=== PATIENT | female | born 1985 | race Caucasian/White ===

== ENCOUNTER 2020-06-29 11:21 | Outpatient (REF) | payer OTHER, SELFPAY | END 2020-06-29 11:22 | disposition home or self-care (01) | LOC: HO.LAB 11:21 | PROVIDERS: Visit Provider Internal Medicine | DX: Z20.828 Contact with and (suspected) exposure to other viral communicable diseases (principal) | CPT/HCPCS: C9803; U0003 ==

== ENCOUNTER 2020-08-21 18:14 | Emergency (ER) | payer OTHER, SELFPAY ==
--- NOTE | 2020-08-21 18:25 | ECG_ITS ---
Test Reason : SI Blood Pressure : / mmHG Vent. Rate : 095 BPM Atrial Rate : 095 BPM P-R Int : 140 ms QRS Dur : 088 ms QT Int : 360 ms P-R-T Axes : 055 086 035 degrees QTc Int : 452 ms Normal sinus rhythm Normal ECG No previous ECGs available Referred By: Demetrius Dumont Electronically Signed By:Clifford Cortez
[2020-08-21 18:54] VITALS: BP 148/103; BP 156/76; PULSE 99; RESP 21; TEMP 36.6; O2SAT 100; O2SAT 98; BMI 22.8
[2020-08-21 19:03] VITALS: BP 148/103; PULSE 99; RESP 21; TEMP 36.6; O2SAT 100
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
[2020-08-21] MEDS: Activated charcoaL 50 GM/240 ML ORAL.SUSP PO (19:24)
[2020-08-21 20:07] LABS: Basophils Percent Auto 0.5 % (0-2); Eosinophils Percent Auto 0.8 % (0-4); Hematocrit 33.8 % (37-47); Hemoglobin 11.2 g/dl (12.0-16.0); Lymphocytes Absolute Auto 1.2 X10*3/uL (1.2-4.9); Lymphocytes Percent Auto 30.2 % (20-40); MANUAL DIFF FLAG NO; Mean Corpuscular HGB Conc 33.1 g/dl (31.0-35.0); Mean Corpuscular Hemoglobin 32.6 pg (27.0-33.0); Mean Corpuscular Volume 98.3 fL (80-98); Mean Platelet Volume 9.4 fL (9.4-12.3); Monocytes Absolute Auto 0.4 X10*3/uL (0.1-1.2); Monocytes Percent Auto 10.3 % (2-11); Neutrophils Absolute Auto 2.3 X10*3/uL (2.0-8.3); Neutrophils Percent Auto 58.2 % (45-73); Platelet Count 238 X10*3/uL (160-400); Red Blood Count 3.44 X10*6/uL (4.20-5.50); Red Cell Distribution Width 12.7 % (11.0-16.0); White Blood Count 3.9 X10*3/uL (4.8-10.8)
[2020-08-21 20:32] VITALS: BP 95/67; PULSE 98; RESP 18; TEMP 36.4; O2SAT 97
[2020-08-21 20:36] LABS: Ethanol < 10 mg/dL
[2020-08-21 20:38] LABS: Acetaminophen LAB < 1 mcg/mL (<30); Alanine Aminotransferase 57 U/L (0-31); Albumin Level 4.4 g/dL (3.5-5.0); Alkaline Phosphatase 45 U/L (39-117); Anion Gap 13 (12-20); Aspartate Amino Transferase 55 U/L (5-31); Bilirubin Direct 0.2 mg/dL (0.0-0.5); Bilirubin Total 0.5 mg/dL (0.0-1.0); Blood Urea Nitrogen 12 mg/dL (9-16); Carbon Dioxide 27 mmol/L (22-29); Chloride 104 mmol/L (96-108); Creatinine Clr Calc Pharmacy 74.8; Estimated Glomerular Filt Rate > 60; Glucose Random 92 mg/dL (60-115); Potassium 3.8 mmol/L (3.3-5.1); Salicylate < 5.0 mg/dL (15-30); Sodium 140 mmol/L (135-145); Total Protein 7.2 g/dL (6.5-8.0)
[2020-08-21 20:55] LABS: COVID-19 Test Negative (Negative)
--- NOTE | 2020-08-21 22:18 | PC.NURSE ---
POISON CONTROL NOTIFIED
[2020-08-21 22:24] VITALS: BP 115/72; PULSE 97; RESP 18; TEMP 36.4; O2SAT 96
[2020-08-21 22:50] LABS: Glucose Urine UA NEG (NEG); Leukocyte Esterase Urine NEG (NEG); Nitrite Urine NEG (NEG); Specific Gravity - Urine <= 1.005 (1.005-1.025); Urine Blood NEG (NEG); Urine Ketones NEG (NEG); Urine Protein NEG (NEG-TRACE)
[2020-08-21 22:55] LABS: Appearance Urine HAZY; Color Urine YELLOW
[2020-08-21 23:15] LABS: Amphetamine Screen Urine Not Detected (Not Detect); Barbiturates, Urine Not Detected (Not Detect); Benzodiazepines Screen Urine Not Detected (Not Detect); Cannabinoid Screen Urine POSITIVE (Not Detect); Cocaine Screen Urine Not Detected (Not Detect); Opiate Screen Urine Not Detected (Not Detect); Phencyclidine Screen Urine Not Detected (Not Detect)
[2020-08-22 00:20] LABS: UPreg QC Valid YES; Urine Pregnancy NEGATIVE (NEGATIVE)
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
[2020-08-22 06:11] VITALS: BP 105/66; PULSE 105; RESP 16; TEMP 37.4; O2SAT 97
[2020-08-22 06:26] LABS: COVID-19 Test Negative (Negative); IDNOW Serial# 9DD0AD1C
--- NOTE | 2020-08-22 07:40 | PC.NURSE ---
Report received from JAKE Lorenzana. Pt resting, resp unlabored.
[2020-08-22 08:00] VITALS: RESP 20
--- NOTE | 2020-08-22 09:07 | PC.NURSE ---
CARE team in to see pt.
[2020-08-22 09:38] VITALS: BP 106/75; PULSE 97; TEMP 36.4; O2SAT 100
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
--- NOTE | 2020-08-22 10:26 | PC.NURSE ---
Pt seen by CARE team, rodrigue byrne rec w/ pt, pt reports she has been compliant w/ medications. Pt denies any symptoms other than headache at this time..
[2020-08-22] MEDS: Acetaminophen 325 MG TABLET 650 MG PO (10:51)
--- NOTE | 2020-08-22 11:00 | MHC.CARE ---
Pt provided alt number for JUVENCIO Heath and stated she wanted to speak with him or Waqas about their thoughts for admission prior to her willingness to seek help. T/w spoke briefly with Waqas who stated he doesn't have a history on her he has only known her 2 months and he is just glad that she is getting the help she needs . Pt then made a call to Waqas on the pod phone. Pt stated to t/w she still is not willing to seek an admission and would prefer not to . T/w is recommending pt seek admission for assessment and stabilization due to her impairment, impulsively and lack of insight. Pt stated her medications are clearly not working yet will not agree to a supervised setting in which to do that. T/w provided recommendations to ED providers that pt would benefit from admission for stabilization and medication review by Psychiatry however pt is not willing at this time. Pt is on a section 12a from police at this time. Pt denies suicidal thinking, homicidal thinking and admitted to taking the impulsive actions last night in order to avoid detention. Pts ED provider met w pt and spoke w pts JUVENCIO Heath who told ED provider he was willing to have pt return home and pick her up as well as help pt seek OP tx. CARE team agreed to give [facility] info as well as list and pt can inform OP provider of her choice to speak w CARE team regarding strong recommendations to seek tx. Pt agreed if she were in acute crisis s/p dc she would return to [facility] and seek admission.
--- NOTE | 2020-08-22 11:12 | PC.NURSE ---
Brendon Chau and CARE team in w/ pt.
--- NOTE | 2020-08-22 11:22 | PC.NURSE ---
Pt evaluated by provider w/ caree team present. Pt to be discharged, pt has significant other who is willing to pick pt up. Pt will stay w/ significant other. Pt in agreement w/ plan, denies SI.
== END 2020-08-22 11:42 | disposition home or self-care (01) ==
PROVIDERS: Student in an Organized Health Care Education/Training Program; Emergency Provider Internal Medicine
DX: T43.212A Poisoning by selective serotonin and norepinephrine reuptake inhibitors, intentional self-harm, initial encounter (principal); Y92.019 Unspecified place in single-family (private) house as the place of occurrence of the external cause; F31.9 Bipolar disorder, unspecified; Z20.822 Contact with and (suspected) exposure to COVID-19
CPT/HCPCS: 36415; 80048; 80076; 80307; 80320; 81003; 81025; 85025; 87635; 93005; 99285; G0480

== ENCOUNTER 2020-09-11 10:53 | Emergency (ER) | payer OTHER, SELFPAY ==
--- NOTE | ~2020-09-11 | CT_ITS ---
EXAMINATION: CT ABDOMEN AND PELVIS WITH CONTRAST CLINICAL INFORMATION: Right lower quadrant pain COMPARISON: None TECHNIQUE: Multidetector volumetric images were obtained from the superior aspect of the liver through the pubic symphysis following administration 85 mL of Omnipaque 350 intravenous contrast. Sagittal and coronal reformatted images were obtained on the technologist's workstation. Oral contrast: No This CT examination was performed using dose optimization techniques as appropriate, variously including the following: *Automated exposure control *Adjustment of mA and/or kV according to patient size (this includes techniques or standardized protocols for targeted exams where dose is matched to indication/reason for exam; i.e. extremities or head) *Use of iterative reconstruction technique DLP: 416 mGy-cm FINDINGS: LUNG BASES: The visualized lung bases are unremarkable. LIVER, GALLBLADDER, AND BILIARY TREE: The liver is normal in size, shape, and attenuation. No focal hepatic lesion or biliary ductal dilatation is present. The gallbladder is unremarkable with no evidence of radiopaque gallstones, gallbladder wall thickening, or obvious pericholecystic inflammatory changes. PANCREAS: Unremarkable. SPLEEN: Unremarkable. ADRENAL GLANDS: Unremarkable. KIDNEYS AND URETERS: The kidneys are normal in size, shape, and attenuation. No hydronephrosis, hydroureter, or calculi seen. No perinephric stranding. BLADDER: Unremarkable. GASTROINTESTINAL TRACT: The small and large bowel are unremarkable. The appendix is unremarkable. ABDOMINAL WALL: No significant hernia is appreciated. LYMPH NODES: Normal. 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 PELVIC VISCERA: IUD present within the uterus. No adnexal abnormalities. Trace pelvic free fluid is normal in a female of reproductive age. OSSEOUS STRUCTURES: Unremarkable. CT/CT abdomen pelvis w con IMPRESSION: No acute findings within the abdomen or pelvis. Normal appendix. Prominent bilateral gonadal veins and pelvic varicosities. This may cause chronic debilitating pain. A consultation with an interventional radiologist to discuss embolization may be useful.
[2020-09-11 10:55] VITALS: BP 120/89; PULSE 98; RESP 18; TEMP 37.4; O2SAT 96; BMI 27.4
[2020-09-11 11:50] LABS: Appearance Urine CLOUDY; Color Urine YELLOW; Glucose Urine UA NEG (NEG); Leukocyte Esterase Urine 1+ (NEG); Nitrite Urine NEG (NEG); UACC Culture Trigger YES; Urine Blood 2+ (NEG); Urine Ketones NEG (NEG); Urine Protein NEG (NEG-TRACE)
[2020-09-11 12:00] LABS: Amorphous Sediment Urine 2+ /LPF; Bacteria Urine 1+ /LPF; Squamous Epithelial Cell Urine 4+ /LPF
[2020-09-11 12:40] LABS: MANUAL DIFF FLAG NO
[2020-09-11 12:41] LABS: Basophils Percent Auto 0.6 % (0-2); Eosinophils Percent Auto 0.8 % (0-4); Hematocrit 36.3 % (37-47); Hemoglobin 11.9 g/dl (12.0-16.0); Imm Gran Abs Auto 0.01 X10*3/uL (0.00-0.03); Imm Gran Pct Auto 0.2 % (0.0-0.4); Lymphocytes Absolute Auto 1.9 X10*3/uL (1.2-4.9); Lymphocytes Percent Auto 35.3 % (20-40); Mean Corpuscular HGB Conc 32.8 g/dl (31.0-35.0); Mean Corpuscular Hemoglobin 32.7 pg (27.0-33.0); Mean Corpuscular Volume 99.7 fL (80-98); Mean Platelet Volume 9.4 fL (9.4-12.3); Monocytes Absolute Auto 0.5 X10*3/uL (0.1-1.2); Neutrophils Absolute Auto 2.8 X10*3/uL (2.0-8.3); Neutrophils Percent Auto 53.1 % (45-73); Platelet Count 277 X10*3/uL (160-400); Red Blood Count 3.64 X10*6/uL (4.20-5.50); Red Cell Distribution Width 13.3 % (11.0-16.0); White Blood Count 5.3 X10*3/uL (4.8-10.8)
[2020-09-11 13:08] LABS: Alanine Aminotransferase 56 U/L (0-31); Albumin Level 4.7 g/dL (3.5-5.0); Alkaline Phosphatase 45 U/L (39-117); Anion Gap 13 (12-20); Aspartate Amino Transferase 48 U/L (5-31); Bilirubin Total 0.6 mg/dL (0.0-1.0); Blood Urea Nitrogen 11 mg/dL (9-16); Calcium 9.3 mg/dL (8.4-10.2); Carbon Dioxide 26 mmol/L (22-29); Chloride 103 mmol/L (96-108); Creatinine Clr Calc Pharmacy 78.9; Estimated Glomerular Filt Rate > 60; Glucose Random 83 mg/dL (60-115); Potassium 4.2 mmol/L (3.3-5.1); Sodium 138 mmol/L (135-145); Total Protein 7.8 g/dL (6.5-8.0)
--- NOTE | 2020-09-11 13:19 | ED_ITS ---
HPI - Abdominal Pain General Chief Complaint: Abdominal Pain Stated Complaint: LOWER ABD PAIN VOMITING Time Seen by Provider: 09/11/20 11:42 Source: patient Mode of arrival: ambulatory Limitations: no limitations History of Present Illness HPI narrative: 35 yo female with RLQ pain x 2 days with n/v and worsening over the past two days, also notes she is due for her period so it could be that, also tried to pull her own IUD out but no bleeding since then MD elicited complaint: abdominal pain Onset (ago): day(s) (2) Pain Consistency: constant Location: RLQ Severity: moderate Quality: cramping Radiation: back Migration to: no migration Exacerbating factors: movement Relieving factors: nothing Associated symptoms: nausea and vomiting Related Data Home Medications Medication Instructions Recorded Confirmed duloxetine 1 cap PO BID 08/22/20 08/22/20 gabapentin 300 mg PO TID 08/22/20 08/22/20 lamotrigine 1 tab PO DAILY 08/22/20 08/22/20 naltrexone 50 mg PO DAILY 08/22/20 08/22/20 pregabalin 2 cap PO DAILY 08/22/20 08/22/20 trazodone 50 mg PO BEDTIME 08/22/20 08/22/20 valacyclovir 1 tab PO DAILY 08/22/20 08/22/20 Previous Rx's Medication Instructions Recorded cyclobenzaprine 10 mg PO TID PRN #14 tab 09/11/20 ondansetron 4 mg PO Q8H PRN #20 tab 09/11/20 Allergies Allergy/AdvReac Type Severity Reaction Status Date / Time Penicillins Allergy Intermediate hives Verified 08/21/20 19:16 Review of Systems Review of Systems Constitutional : No Weight loss, No Fever, No Chills ENT/Mouth : No sore throat, No Rhinorrhea Eyes: No Swelling, No Redness Cardiovascular : No Chest Pain, No SOB, NoEdema Respiratory : No Cough, No Sputum, No Wheezing Gastrointestinal : Positive Nausea, Positive Vomiting, no Diarrhea, positive abdominal Pain, No Hematochezia, No Melena Genitourinary : No Dysuria, No Urinary Frequency, No Hematuria, No Urgency Musculoskeletal : No joint pain, No Myalgias, No Joint Swelling Skin : No Skin Lesions, No rash Neuro : No Weakness, No Numbness, No Dizziness, No Headache Psych : No Anxiety/Panic, No Depression Heme/Lymph: No Bruising, No Lymphadenopathy Endocrine : No Polyuria, No Polydipsia All other systems reviewed and are negative. Physical Exam Vital Signs: Vital Signs: Last Vital Signs Temp 99.4 F 09/11/20 10:55 Pulse 98 09/11/20 10:55 Resp 18 09/11/20 10:55 BP 120/89 09/11/20 10:55 Pulse Ox 96 09/11/20 10:55 Body Mass Index 27.4 Appearance: Alert. Oriented X3. No acute distress. Eyes: Pupils equal, round and reactive to light. ENT: Pharynx normal. Neck: Normal inspection. Neck supple. CVS: Normal heart rate and rhythm. Pulses normal. Respiratory: No respiratory distress. Breath sounds normal. Abdomen: Soft and moderate RLQ ttp but no rebound or guarding Skin: Skin warm and dry. Normal skin color. Normal skin turgor. Extremities: No lower extremity edema. No calf ttp Neuro: Oriented X 3. No motor deficit. No sensory deficit. Course Course Course Narrative: stable for DC - likely pelvic congestion syndrome as she is done with her menses MDM - Abdominal Pain MDM Narrative Medical decision making narrative: 35 yo female with no prior surgeries comes in with c/o RLQ pain could be the start of her menses she also tried to pull out her own IUD as she does not like it at this time labs, IVF, IV Toradol for pain, CT scan for RLQ pain to evaluate appendix, ovary, IUD, dispo per results and findings. Lab Data Result diagrams: 09/11/20 12:33 09/11/20 12:33 Labs: Lab Results 09/11/20 09/11/20 09/11/20 Range/Units 11:43 12:33 12:33 WBC 5.3 (4.8-10.8) X10*3/uL RBC 3.64 L (4.20-5.50) X10*6/uL Hgb 11.9 L (12.0-16.0) g/dl Hct 36.3 L (37-47) % MCV 99.7 H (80-98) fL MCH 32.7 (27.0-33.0) pg MCHC 32.8 (31.0-35.0) g/dl RDW 13.3 (11.0-16.0) % Plt Count 277 (160-400) X10*3/uL MPV 9.4 (9.4-12.3) fL Immature Gran % (Auto) 0.2 (0.0-0.4) % Neut % (Auto) 53.1 (45-73) % Lymph % (Auto) 35.3 (20-40) % Simpson % (Auto) 10.0 (2-11) % Eos % (Auto) 0.8 (0-4) % Baso % (Auto) 0.6 (0-2) % Lymph # (Auto) 1.9 (1.2-4.9) X10*3/uL Simpson # (Auto) 0.5 (0.1-1.2) X10*3/uL Eos # (Auto) 0.0 (0.0-0.4) X10*3/uL Baso # (Auto) 0.0 (0.0-0.2) X10*3/uL Abs Immat Gran (auto) 0.01 (0.00-0.03) X10*3/uL Absolute Neuts (auto) 2.8 (2.0-8.3) X10*3/uL Absolute Nucleated RBC 0.000 (0.0-0.012) X10*3/uL Nucleated RBC % (auto) 0.0 (0.0-0.2) /100WBC Hold Blue Top SEE NOTE Sodium (135-145) mmol/L Potassium (3.3-5.1) mmol/L Chloride (96-108) mmol/L Carbon Dioxide (22-29) mmol/L Anion Gap (12-20) BUN (9-16) mg/dL Creatinine (0.5-1.4) mg/dL Estim Creat Clear Calc Estimated GFR Random Glucose (60-115) mg/dL Calcium (8.4-10.2) mg/dL Total Bilirubin (0.0-1.0) mg/dL AST (5-31) U/L ALT (0-31) U/L Alkaline Phosphatase (39-117) U/L Total Protein (6.5-8.0) g/dL Albumin (3.5-5.0) g/dL Urine Color YELLOW Urine Appearance CLOUDY Urine pH 6.0 (5.0-8.0) Ur Specific [place] 1.020 (1.005-1.025) Urine Protein NEG (NEG-TRACE) MG/DL Urine Glucose (UA) NEG (NEG) MG/DL Urine Ketones NEG (NEG) MG/DL Urine Blood 2+ H (NEG) Urine Nitrite NEG (NEG) Ur Leukocyte Esterase 1+ H (NEG) Urine RBC 5-9 H (0) /HPF Urine WBC 1-4 (0-4) /HPF Ur Squamous Epith Cells 4+ /LPF Amorphous Sediment 2+ /LPF Urine Bacteria 1+ /LPF Urine Test NEGATIVE (NEGATIVE) 09/11/20 Range/Units 12:33 WBC (4.8-10.8) X10*3/uL RBC (4.20-5.50) X10*6/uL Hgb (12.0-16.0) g/dl Hct (37-47) % MCV (80-98) fL MCH (27.0-33.0) pg MCHC (31.0-35.0) g/dl RDW (11.0-16.0) % Plt Count (160-400) X10*3/uL MPV (9.4-12.3) fL Immature Gran % (Auto) (0.0-0.4) % Neut % (Auto) (45-73) % Lymph % (Auto) (20-40) % Simpson % (Auto) (2-11) % Eos % (Auto) (0-4) % Baso % (Auto) (0-2) % Lymph # (Auto) (1.2-4.9) X10*3/uL Simpson # (Auto) (0.1-1.2) X10*3/uL Eos # (Auto) (0.0-0.4) X10*3/uL Baso # (Auto) (0.0-0.2) X10*3/uL Abs Immat Gran (auto) (0.00-0.03) X10*3/uL Absolute Neuts (auto) (2.0-8.3) X10*3/uL Absolute Nucleated RBC (0.0-0.012) X10*3/uL Nucleated RBC % (auto) (0.0-0.2) /100WBC Hold Blue Top Sodium 138 (135-145) mmol/L Potassium 4.2 (3.3-5.1) mmol/L Chloride 103 (96-108) mmol/L Carbon Dioxide 26 (22-29) mmol/L Anion Gap 13 (12-20) BUN 11 (9-16) mg/dL Creatinine 0.90 (0.5-1.4) mg/dL Estim Creat Clear Calc 78.9 Estimated GFR > 60 Random Glucose 83 (60-115) mg/dL Calcium 9.3 (8.4-10.2) mg/dL Total Bilirubin 0.6 (0.0-1.0) mg/dL AST 48 H (5-31) U/L ALT 56 H (0-31) U/L Alkaline Phosphatase 45 (39-117) U/L Total Protein 7.8 (6.5-8.0) g/dL Albumin 4.7 (3.5-5.0) g/dL Urine Color Urine Appearance Urine pH (5.0-8.0) Ur Specific [place] (1.005-1.025) Urine Protein (NEG-TRACE) MG/DL Urine Glucose (UA) (NEG) MG/DL Urine Ketones (NEG) MG/DL Urine Blood (NEG) Urine Nitrite (NEG) Ur Leukocyte Esterase (NEG) Urine RBC (0) /HPF Urine WBC (0-4) /HPF Ur Squamous Epith Cells /LPF Amorphous Sediment /LPF Urine Bacteria /LPF Urine Test (NEGATIVE) Discharge Plan Discharge Clinical Impression: Female pelvic congestion syndrome Abdominal pain Qualifiers: Abdominal location: lower abdomen, unspecified Qualified Code(s): R10.30 - Lower abdominal pain, unspecified Patient Disposition: Home, Self-Care Instructions: Abdominal Pain (ED) Additional Instructions: return to ED for any worsening symptoms or concerns YOU SHOULD FOLLOW UP WITH YOUR OBGYN FOR FURTHER TREATMENT Prescriptions: New cyclobenzaprine 10 mg tablet 10 mg PO TID PRN (Reason: muscle spasm) Qty: 14 RF: 0 ondansetron 4 mg tablet,disintegrating 4 mg PO Q8H PRN (Reason: nausea and vomiting) Qty: 20 RF: 0 No Action lamotrigine 150 mg tablet 1 tab PO DAILY RF: 0 valacyclovir 1 gram tablet 1 tab PO DAILY RF: 0 duloxetine 60 mg capsule,delayed release(DR/EC) 1 cap PO BID RF: 0 pregabalin 25 mg capsule 2 cap PO DAILY RF: 0 trazodone 50 mg Tablet 50 mg PO BEDTIME RF: 0 gabapentin 300 mg Capsule 300 mg PO TID RF: 0 naltrexone 50 mg Tablet 50 mg PO DAILY RF: 0 PMFSH Past Medical History Attestation statement: The following information was validated with the patient. Medical History Bipolar 1 disorder Hepatitis B Hepatitis C Social History Social History Alcohol intake: never Smoking Status: Never smoker Use of substances other than those prescribed or required for medical reasons: No Advance Directives: No Advance Directives Information Provided: No
[2020-09-11 13:33] LABS: UPreg QC Valid YES; Urine Pregnancy NEGATIVE (NEGATIVE)
[2020-09-11] MEDS: iohexoL 350 MG/ML 100 ML INFUS..BTL 85 ML IV (14:54)
[2020-09-11 15:23] VITALS: BP 113/69; PULSE 89; RESP 18; TEMP 36.8; O2SAT 98
== END 2020-09-11 15:54 | disposition home or self-care (01) ==
PROVIDERS: Emergency Provider Emergency Medicine
DX: N94.89 Other specified conditions associated with female genital organs and menstrual cycle (principal); R10.31 Right lower quadrant pain; Z86.19 Personal history of other infectious and parasitic diseases
CPT/HCPCS: 36415; 74177; 80053; 81001; 81003; 81025; 85025; 87086; 96361; 96374; 96375; 99284; Q9967

== ENCOUNTER 2020-10-16 21:01 | Emergency (ER) | payer OTHER, SELFPAY ==
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
[2020-10-16 21:08] VITALS: BP 138/77; PULSE 100; RESP 18; TEMP 36.7; O2SAT 96; BMI 21.9
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
[2020-10-16 22:00] VITALS: RESP 24
[2020-10-16] MEDS: Morphine Sulfate 2 MG/ML CARTRIDGE IM (22:05)
[2020-10-16] MEDS: LORazepam 2 MG/ML VIAL IM (22:09)
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
--- NOTE | 2020-10-16 22:14 | PC.NURSE ---
PT REQUEST MOTHER DAVID TO BE CONTACTED FOR COMFORT. DAVID [phone]
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
[2020-10-16 22:27] VITALS: BP 112/78; PULSE 94; RESP 20; TEMP 36.8; O2SAT 100
--- NOTE | 2020-10-16 23:29 | PC.NURSE ---
ct scan completed. delay due to patient being unable to tolerate lying still without frequent redirection. pt tolerated scan well. monitoring at this time.
[2020-10-17] VITALS: BP 132/90; PULSE 70; RESP 18; O2SAT 95
[2020-10-17 00:04] LABS: MANUAL DIFF FLAG NO
[2020-10-17] MEDS: HYDROmorphone HCl 1 MG/ML SYRINGE IVPUSH (00:04)
[2020-10-17 00:08] LABS: Basophils Percent Auto 0.4 % (0-2); Eosinophils Percent Auto 0.1 % (0-4); Hematocrit 35.3 % (37-47); Hemoglobin 11.8 g/dl (12.0-16.0); Imm Gran Abs Auto 0.02 X10*3/uL (0.00-0.03); Imm Gran Pct Auto 0.2 % (0.0-0.4); Lymphocytes Absolute Auto 1.4 X10*3/uL (1.2-4.9); Lymphocytes Percent Auto 16.8 % (20-40); Mean Corpuscular HGB Conc 33.4 g/dl (31.0-35.0); Mean Corpuscular Hemoglobin 32.4 pg (27.0-33.0); Mean Platelet Volume 9.3 fL (9.4-12.3); Monocytes Absolute Auto 0.3 X10*3/uL (0.1-1.2); Neutrophils Absolute Auto 6.8 X10*3/uL (2.0-8.3); Neutrophils Percent Auto 79.5 % (45-73); Platelet Count 255 X10*3/uL (160-400); Red Blood Count 3.64 X10*6/uL (4.20-5.50); Red Cell Distribution Width 13.6 % (11.0-16.0); White Blood Count 8.6 X10*3/uL (4.8-10.8)
[2020-10-17 00:16] LABS: INTERNATIONAL NORM RATIO 0.9 (0.9-1.1); Prothrombin Time 10.8 SEC (10.8-13.0)
--- NOTE | 2020-10-17 00:26 | PC.NURSE ---
Dilaudid appears to have good effect. pt sleeping now. pt completely changed over into hospital clothes. belongings include: gold colored ring with pale purple stone, back rubber choker necklace, smart watch, smart phone, clothing, shoes. IV: 18g lac. 1000ml bag NS hung per verbal order by . monitoring at this time.
[2020-10-17 00:27] LABS: Ethanol 165 mg/dL
[2020-10-17 00:30] LABS: Amphetamine Screen Urine Not Detected (Not Detect); Barbiturates, Urine Not Detected (Not Detect); Benzodiazepines Screen Urine Not Detected (Not Detect); Cannabinoid Screen Urine POSITIVE (Not Detect); Cocaine Screen Urine Not Detected (Not Detect); Opiate Screen Urine POSITIVE (Not Detect); Phencyclidine Screen Urine Not Detected (Not Detect)
[2020-10-17 00:31] LABS: Alanine Aminotransferase 51 U/L (0-31); Albumin Level 4.8 g/dL (3.5-5.0); Alkaline Phosphatase 36 U/L (39-117); Anion Gap 18 (12-20); Aspartate Amino Transferase 59 U/L (5-31); Bilirubin Direct < 0.2 mg/dL (0.0-0.5); Bilirubin Total 0.4 mg/dL (0.0-1.0); Blood Urea Nitrogen 6 mg/dL (9-16); Calcium 8.7 mg/dL (8.4-10.2); Carbon Dioxide 23 mmol/L (22-29); Chloride 103 mmol/L (96-108); Creatinine Clr Calc Pharmacy 76.7; Estimated Glomerular Filt Rate > 60; Glucose Random 110 mg/dL (60-115); Potassium 4.4 mmol/L (3.3-5.1); Sodium 140 mmol/L (135-145)
[2020-10-17 00:36] LABS: HCG Quantitative < 2 mIU/mL
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
== END 2020-10-17 01:43 | disposition short-term general hospital (02) ==
PROVIDERS: Emergency Provider Emergency Medicine
DX: S02.652A Fracture of angle of left mandible, initial encounter for closed fracture (principal); G44.309 Post-traumatic headache, unspecified, not intractable; M54.2 Cervicalgia; F10.229 Alcohol dependence with intoxication, unspecified; Y90.6 Blood alcohol level of 120-199 mg/100 ml; Y04.8XXA Assault by other bodily force, initial encounter; Y93.9 Activity, unspecified; Y92.009 Unspecified place in unspecified non-institutional (private) residence as the place of occurrence of the external cause; Y99.9 Unspecified external cause status; F17.200 Nicotine dependence, unspecified, uncomplicated; Z71.6 Tobacco abuse counseling; Z79.899 Other long term (current) drug therapy
CPT/HCPCS: 36415; 70450; 70486; 72125; 80048; 80076; 80307; 80320; 84702; 85025; 85610; 96372; 96374; 99285; J1170; J2060; J2270